=== PATIENT | male | born 1990 | race Caucasian/White ===

== ENCOUNTER 2016-07-31 03:58 | Emergency (ER) | payer SELFPAY ==
[~2016-07-31] VITALS: Ht 175.3 cm; Wt 87.0 kg
[2016-07-31 04:05] VITALS: BP 158/103; PULSE 104; RESP 18; TEMP 98.1; O2SAT 99
--- NOTE | 2016-07-31 04:33 | PD ---
HPI Chief Complaint: Psychiatric Symptoms Time Seen by Provider: 04:30 Travel History International Travel<30 days: No Contact w/Intl Traveler<30days: No Traveled to known affect area: No History of Present Illness HPI Patient comes in under [place] act by police for making suicidal statements. Patient states that he is a drug addict and feels like his life at its end. Patient states he's attempted suicide in the past by overdosing. Patient did not have a definitive plan at this time but possibly considered overdosing. Patient states he last used heroin and crack cocaine approximately 4 hours ago. Patient denies any medical complaints at this time. Denies any chest pain, shortness of breath, nausea, vomiting, fevers, or abdominal pain. 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 SKIN: Warm and dry. HEAD: Atraumatic. Normocephalic. EYES: Pupils round. EOMI. No scleral icterus. No injection or drainage. ENT: No nasal bleeding or discharge. Mucous membranes pink and moist. NECK: Trachea midline. Supple. No nuclear rigidity. CARDIOVASCULAR: Regular rate and rhythm. No murmur appreciated. RESPIRATORY: No accessory muscle use. No respiratory distress. Clear to auscultation. Breath sounds equal bilaterally. MUSCULOSKELETAL: No obvious deformities. No clubbing. No cyanosis. No edema. Full range of motion. NEUROLOGICAL: Awake and alert. No obvious cranial nerve deficits. Motor grossly within normal limits. Normal speech. PSYCHIATRIC: Appropriate mood and affect. Data Data Last Documented VS Vital Signs Date Time Temp Pulse Resp B/P Pulse Ox O2 Delivery O2 Flow Rate FiO2 07/31/16 04:05 98.1 104 18 158/103 99 Orders Complete Blood Count With Diff (07/31/16 04:08) Comprehensive Metabolic Panel (07/31/16 04:08) Drug Screen, Random Urine (07/31/16 04:08) Alcohol (Ethanol) (07/31/16 04:08) Salicylates (Aspirin) (07/31/16 04:08) Tylenol (Acetaminophen) (07/31/16 04:08) Psych Screen (07/31/16 04:08) Labs Laboratory Tests Test 07/31/16 04:15 White Blood Count 14.7 TH/MM3 Red Blood Count 4.90 MIL/MM3 Hemoglobin 14.6 GM/DL Hematocrit 42.4 % Mean Corpuscular Volume 86.4 FL Mean Corpuscular Hemoglobin 29.8 PG Mean Corpuscular Hemoglobin 34.5 % Concent Red Cell Distribution Width 13.4 % Platelet Count 311 TH/MM3 Mean Platelet Volume 7.6 FL Neutrophils (%) (Auto) 70.5 % Lymphocytes (%) (Auto) 21.7 % Monocytes (%) (Auto) 7.4 % Eosinophils (%) (Auto) 0.2 % Basophils (%) (Auto) 0.2 % Neutrophils # (Auto) 10.4 TH/MM3 Lymphocytes # (Auto) 3.2 TH/MM3 Monocytes # (Auto) 1.1 TH/MM3 Eosinophils # (Auto) 0.0 TH/MM3 Basophils # (Auto) 0.0 TH/MM3 CBC Comment DIFF FINAL Differential Comment Sodium Level 140 MEQ/L Potassium Level 3.5 MEQ/L Chloride Level 105 MEQ/L Carbon Dioxide Level 24.3 MEQ/L Anion Gap 11 MEQ/L Blood Urea Nitrogen 8 MG/DL Creatinine 1.01 MG/DL Estimat Glomerular Filtration 89 ML/MIN Rate Random Glucose 103 MG/DL Calcium Level 9.2 MG/DL Total Bilirubin 0.4 MG/DL Aspartate Amino Transf 88 U/L (AST/SGOT) Alanine Aminotransferase 256 U/L (ALT/SGPT) Alkaline Phosphatase 108 U/L Total Protein 8.7 GM/DL Albumin 4.0 GM/DL Salicylates Level 3.0 MG/DL Urine Opiates Screen POS Acetaminophen Level LESS THAN 2.0 MCG/ML Urine Barbiturates Screen NEG Urine Amphetamines Screen NEG Urine Benzodiazepines Screen POS Urine Cocaine Screen POS Urine Cannabinoids Screen NEG Ethyl Alcohol Level LESS THAN 3 MG/DL MDM Medical Decision Making Medical Screen Exam Complete: Yes Emergency Medical Condition: Yes Differential Diagnosis Homicidal, suicidal, drug-induced psychosis, alcohol intoxication, polysubstance abuse, other Narrative Course Patient was seen and examined. Labs were obtained and reviewed. Slightly elevated white blood cell count is likely stress and drug induced. Patient medically cleared for further treatment and evaluation by psych. Final disposition per psych. Diagnosis Primary Impression: Suicidal ideations Additional Impression: Polysubstance abuse Scripts No Active Prescriptions or Reported Meds Condition: Stable Fabio Holbrook Jul 31, 2016 04:33
[2016-07-31 04:38] LABS: AUTOMATED NEUTROPHIL # 10.4 TH/MM3 (1.8-7.7); BASOPHIL % 0.2 % (0.0-2.0); EOSINOPHIL % 0.2 % (0.0-4.0); HEMATOCRIT 42.4 % (39.0-51.0); HEMO FLAGS DIFF FINAL; LYMPH % 21.7 % (9.0-44.0); LYMPHOCYTE # 3.2 TH/MM3 (1.0-4.8); MEAN CELL VOLUME 86.4 FL (80.0-100.0); MEAN CORPUSCULAR HEMOGLOBIN 29.8 PG (27.0-34.0); MEAN CORPUSCULAR HGB CONC 34.5 % (32.0-36.0); MONO % 7.4 % (0.0-8.0); NEUT % 70.5 % (16.0-70.0); PLATELET COUNT 311 TH/MM3 (150-450); RED CELL DISTRIBUTION WIDTH 13.4 % (11.6-17.2); WHITE BLOOD COUNT 14.7 TH/MM3 (4.0-11.0)
[2016-07-31 04:48] LABS: AMPHETAMINE, URINE NEG (NEG); BARBITURATES, URINE NEG (NEG); COCAINE, URINE POS (NEG)
[2016-07-31 05:20] LABS: ANION GAP 11 MEQ/L (5-15); AST (GOT) 88 U/L (15-37); BICARBONATE 24.3 MEQ/L (21.0-32.0); BLOOD UREA NITROGEN 8 MG/DL (7-18); CHLORIDE 105 MEQ/L (98-107); GLOMERULAR FILTRATION RATE 89 ML/MIN (>89); POTASSIUM 3.5 MEQ/L (3.5-5.1); SODIUM (NA) 140 MEQ/L (136-145)
[2016-07-31 05:25] LABS: ALKALINE PHOSPHATASE 108 U/L (45-117); ALT (GPT) 256 U/L (12-78); TOTAL BILIRUBIN ADULT 0.4 MG/DL (0.2-1.0)
[2016-07-31 05:34] LABS: ACETAMINOPHEN LESS THAN 2.0 MCG/ML (10.0-30.0)
[2016-07-31 06:43] VITALS: BP 122/79; PULSE 90; RESP 16; O2SAT 99
--- NOTE | 2016-07-31 11:07 | PD.CONS ---
Provisional Diagnosis Admission Date [place]. Substance-induced mood disorder, opiates and cocaine use disorder History of Present Illness Service Psychiatry Consult Requested By Primary Care Physician No Primary Care Physician HPI The patient is a 25-year-old man, unemployed, single, without any previous psychiatric history, no previous psychiatric hospitalization, cocaine and heroine use disorder. No significant medical history. Patient comes in under [place] act by police for making suicidal statements. On arrival to ER Patient stated that he is a drug addict and felt like his life was at the end. He admitted that he has been using cocaine and heroine continuously in the last days. On psychiatric evaluation today the patient states that he feels much better, he says that yesterday he was very high and since he is homeless he needed a place to stay. Patient denies depressive symptoms, denies suicidal or homicidal ideation at this moment. Patient states that he is motivated to be discharged to a detox program and after detox going to a rehabilitation program. He says that he just recently moved from [place] to [place] because he has a 7 months old and he wants to be a good father for him. Patient denies perceptual disturbances, such as visual and auditory hallucinations. Patient's reports daily use of crack cocaine and IV heroin. Review of Systems Constitutional: COMPLAINS OF: Change in appetite Eyes: DENIES: Blurred vision, Diplopia, Eye inflammation, Eye pain, Vision loss , Photosensitivity, Double Vision Ears, nose, mouth, throat: DENIES: Tinnitus, Hearing loss, Vertigo, Nasal discharge, Oral lesions, Throat pain, Hoarseness, Ear Pain, Running Nose, Epistaxis, Sinus Pain, Toothache, Odynophagia Respiratory: DENIES: Apneas, Cough, Snoring, Wheezing, Hemoptysis, Sputum production, Shortness of breath Gastrointestinal: COMPLAINS OF: Nausea Integumentary: DENIES: Abnormal pigmentation, Nail changes, Pruritus, Rash Hematologic/lymphatic: DENIES: Bruising, Lymphadenopathy Immunologic/allergic: DENIES: Eczema, Urticaria Neurologic: DENIES: Abnormal gait, Headache, Localized weakness, Paresthesias, Seizures, Speech Problems, Tremor, Poor Balance Psychiatric: DENIES: Anxiety, Confusion, Mood changes, Depression, Hallucinations, Agitation, Suicidal Ideation, Homicidal Ideation, Delusions Past Family Social History Coded Allergies: No Known Allergies (Unverified , 07/31/16) No Active Prescriptions or Reported Meds Physical Exam Vital Signs Vital Signs Date Time Temp Pulse Resp B/P Pulse Ox O2 Delivery O2 Flow Rate FiO2 07/31/16 06:43 90 16 122/79 99 Room Air 07/31/16 04:05 98.1 Mental Status Examination Appearance man, age appearing,, calm and cooperative Speech: Unremarkable Orientation: x3 Memory: Unremarkable Thought Process: Logical Thought Content: Unremarkable Hallucination Type: None Suicidal Ideation: No Previous Suicide Attempts: No Homicidal Ideation: No Previous Homicide Attempts: No Judgement: WNL Affect: Good Mood: Appropriate Motor Activity: Normal gait Assessment & Plan Problem List: (1) Substance induced mood disorder Assessment & Plan: On psychiatric evaluation the patient does not present any acute, concerning, significant psychiatric symptom that requires a psychiatric hospitalization at this moment. Patient denies suicidal ideation. Patient admits using crack cocaine and heroine every day and shows motivation in be discharged to a detox program. Extensive support and psychoeducation provided. Patient will be discharged to Detox in [facility]. ICD Code: F19.94 Assessment & Plan Estimated LOS: Messi Avina MD Jul 31, 2016 11:07
== END 2016-07-31 09:40 ==
LOC: NEPA 04:49 → NEPJ 09:40
DX: F14.94 Cocaine use, unspecified with cocaine-induced mood disorder (principal); F13.94 Sedative, hypnotic or anxiolytic use, unspecified with sedative, hypnotic or anxiolytic-induced mood disorder; F11.94 Opioid use, unspecified with opioid-induced mood disorder
CPT/HCPCS: 80053; 80307; 80320; 80329; 85025; 99285; G0480